=== PATIENT | female | born 1990 | race Two or more races ===

== ENCOUNTER 2020-03-23 02:10 | Emergency (ER) | payer OTHER ==
[~2020-03-23] VITALS: Ht 154.9 cm; Wt 59.1 kg
[2020-03-23] MEDS ORDERED: LIDOCAINE 1% 10 ML VIAL INJ ONE (02:45)
[2020-03-23] MEDS ORDERED: BACITRACIN 0.9 GM PACKET OINTMENT TP ONE (03:30)
[2020-03-23] MEDS ORDERED: PERTUSS(ACELL),DIPH,TET VAC/PF 0.5 ML VIAL IM ONE (03:30)
[2020-03-23 03:35] VITALS: BP 125/72
== END 2020-03-23 04:04 | disposition home or self-care (01) ==
LOC: EMS 02:10 → EDBD 02:10 → EMS 04:04
DX: S61.411A Laceration without foreign body of right hand, initial encounter (principal); W22.8XXA Striking against or struck by other objects, initial encounter; Y93.89 Activity, other specified; Y92.89 Other specified places as the place of occurrence of the external cause; Y99.8 Other external cause status
CPT/HCPCS: 12002; 99283; J3490

== ENCOUNTER 2020-03-29 12:20 | Emergency (ER) | payer OTHER ==
[~2020-03-29] VITALS: Ht 154.9 cm; Wt 59.1 kg
[2020-03-29] MEDS ORDERED: CEPHALEXIN MONOHYDRATE 500 MG CAPSULE PO ONE ×2 (13:00)
[2020-03-29] MEDS ORDERED: IBUPROFEN 400 MG TABLET PO ONE (13:00)
[2020-03-29] MEDS ORDERED: SULFAMETHOX/TRIMETH DS 800-160 MG/TABLET PO ONE (13:00)
[2020-03-29] MEDS ORDERED: MUPIROCIN CALCIUM 2% 22 GM OINTMENT TP ONE (13:00)
[2020-03-29 14:11] VITALS: BP 154/74
== END 2020-03-29 14:12 | disposition home or self-care (01) ==
LOC: EMS 12:24
DX: T81.33XA Disruption of traumatic injury wound repair, initial encounter (principal); Y84.8 Other medical procedures as the cause of abnormal reaction of the patient, or of later complication, without mention of misadventure at the time of the procedure; Y82.8 Other medical devices associated with adverse incidents

== ENCOUNTER 2021-07-25 15:19 | Emergency (ER) | payer MEDICAID, OTHER ==
[~2021-07-25] VITALS: Ht 154.9 cm; Wt 60.9 kg
[~2021-07-25 15:19] MED LIST: ACET-2163 PO; APIX5TAB PO
[2021-07-25 18:51] VITALS: BP 117/76
== END 2021-07-25 19:13 | disposition home or self-care (01) ==
LOC: EMS 15:26
DX: Z48.01 Encounter for change or removal of surgical wound dressing (principal); F17.210 Nicotine dependence, cigarettes, uncomplicated
CPT/HCPCS: 99281; Z7502